=== PATIENT | female | born 1995 | race Two or more races ===

== ENCOUNTER 2017-04-05 00:39 | Emergency (ER) | payer BC ==
--- NOTE | ~2017-04-05 | CR20 ---
[facility] A Service of [facility] / [facility] RADIOLOGY TEXT RESULTS PATIENT: MARGOT BARBOSA LOCATION: [facility] : [birth year] UNIT #: [id number] AGE: [address]: Maciel Georges MD SEX: F ORDER DR: [id number] [facility] [address] [facility]. [place], [place] [address] [id number] E MR#: [id number] Acc #: [id number] NAME: MARGOT BAROBSA : 1995 SEX: F STUDY DATE/TIME: 04/05/2017 2:15 UNIT: [facility] ROOM: STUDY DESCRIPTION: CR Ankle Min 3 Views Lt Attending Physician: Maciel Georges M.D. Ordering Physician: Ed Doctor [id number] [facility] Primary Care Physician: Primary Care Physician No MEDICAL IMAGING REPORT This report is preliminary unless electronic signature is present EXAM Left ankle INDICATION Left ankle pain for 3 days. No known injury. FINDINGS AP, lateral, and oblique projections of the ankle show satisfactory integrity of the joint mortise with a smooth articular surface. There is no identifiable fracture, dislocation, or radiopaque foreign body. IMPRESSION Normal ankle. Dictated by... Valentino Bey M.D. THIS IS AN ELECTRONICALLY VERIFIED REPORT Valentino Bey M.D. at 04/05/2017 1:32 PM KATY/elva TD: 04/05/2017 13:01 JOB #: [id number] MEDICAL IMAGING REPORT Page 1 of 1 COPY
== END 2017-04-05 03:00 | disposition home or self-care (01) ==
LOC: CED 00:39
DX: M25.472 Effusion, left ankle (principal)
CPT/HCPCS: 29540; 73610; 84703; 99283